=== PATIENT | male | born 1960 | race Caucasian/White ===

== ENCOUNTER 2016-12-04 00:46 | Emergency (ER) | payer OTHER | END 2016-12-04 04:16 | disposition home or self-care (01) | LOC: FER 00:46 | DX: F43.23 Adjustment disorder with mixed anxiety and depressed mood (principal); R11.2 Nausea with vomiting, unspecified; F17.210 Nicotine dependence, cigarettes, uncomplicated; Z79.899 Other long term (current) drug therapy; Z85.01 Personal history of malignant neoplasm of esophagus; Z85.05 Personal history of malignant neoplasm of liver | CPT/HCPCS: 99283 ==